=== PATIENT | female | born 1980 | race American Indian/Alaskan Native ===

== ENCOUNTER 2021-11-04 20:21 | Emergency (ER) | payer MEDICAID, OTHER, SELFPAY ==
[2021-11-04 20:27] VITALS: PULSE 102; RESP 24; TEMP 37.7; O2SAT 95
--- NOTE | 2021-11-04 20:31 | DI.RAD.S_ITS ---
PROCEDURE: XR CHEST 1V INDICATIONS: suspected sepsis TECHNIQUE: One view of the chest was acquired. COMPARISON: [facility], , CHEST 1 VIEW, 10/07/2014, 17:24. FINDINGS: Surgical changes and devices: None. Lungs and pleura: Lungs are clear. No pleural effusions or pneumothorax. Mediastinum: Mediastinal contours appear normal. Heart size is normal. Bones and chest wall: No suspicious bony lesions. Overlying soft tissues appear unremarkable. IMPRESSION: No evidence acute pulmonary process. Dictated by: Michael Schmitt M.D. on 11/04/2021 at 21:00 Approved by: Michael Schmitt M.D. on 11/04/2021 at 21:02
[2021-11-04 21:00] VITALS: BP 106/63; PULSE 100; RESP 30; O2SAT 100
[2021-11-04 21:10] VITALS: PULSE 98; RESP 30; O2SAT 99
[2021-11-04 21:15] VITALS: BP 95/50; PULSE 98; RESP 33; O2SAT 98
[2021-11-04 21:18] LABS: COVID19 -Nasal RAPID Negative (Negative)
--- NOTE | 2021-11-04 21:20 | PC.NURSE ---
Returned to room to ask about allergies to medicine, pt's partner told me we are leaving.... you guys are not doing anything. He removed pt from monitoring. I asked pt is she wanted to leave and she said 'yes'. I told them they were welcome to come back at any time. He states no we won't. total time in department 60 min. Signed AMA papers verbally understanding that risk of leaving was worsening of condition up to and including . Pt left department ambulatory w/o assistance.
== END 2021-11-04 21:24 | disposition left against medical advice (07) ==
PROVIDERS: Emergency Provider Emergency Medicine
DX: Z53.29 Procedure and treatment not carried out because of patient's decision for other reasons (principal); Z20.822 Contact with and (suspected) exposure to COVID-19
CPT/HCPCS: 71045; 87635; 99283; C9803

== ENCOUNTER 2023-12-04 18:43 | Emergency (ER) | payer MEDICAID, OTHER, SELFPAY ==
[2023-12-04 18:49] VITALS: BP 118/67; PULSE 79; RESP 16; TEMP 36.9; O2SAT 95
--- NOTE | 2023-12-04 18:53 | DI.RAD.S_ITS ---
PROCEDURE: XR ANKLE RT MIN 3V INDICATIONS: fell, pain in right ankle TECHNIQUE: 3 views of the ankle were acquired. COMPARISON: [facility], , ANKLE 3 VIEWS LEFT, 10/05/2008, 2:37. FINDINGS: Bones: Comminuted nondisplaced distal fibular fracture. Minimally displaced medial malleolar fracture is present. Soft tissues: Mild ankle edema. Achilles tendon appears normal. IMPRESSION: Comminuted nondisplaced distal fibular fracture. Minimally displaced medial malleolar fracture. Dictated by: Meenakshi Reno M.D. on 12/04/2023 at 19:17 Approved by: Meenakshi Reno M.D. on 12/04/2023 at 19:18
--- NOTE | 2023-12-04 20:31 | PC.NURSE ---
pt states that she hurt her ankle on Tue and has been staying in bed since but the pain has increased and pt is now unable to bear any weight on that leg, leg elevated and ice pack applied
--- NOTE | 2023-12-04 20:47 | DI.RAD.S_ITS ---
PROCEDURE: XR TIBIA FUBULA RT 2V INDICATIONS: distal fx, tender proximal too TECHNIQUE: 2 views of the tibia and fibula were acquired. COMPARISON: [facility], CR, XR ANKLE RT MIN 3V, 12/04/2023, 18:57. FINDINGS: Bones: Partially seen distal fibular fracture. There are degenerative changes at the knee. Ankle findings are separately dictated. No displaced fracture at the tibial fibular shafts. Soft tissues: No suspicious calcifications. Partially seen knee effusion. IMPRESSION: No displaced fracture of the tibial or fibular shafts. Ankle findings are separately dictated. There are degenerative changes at the knee. Partially seen knee effusion. If there is high concern for further derangement, consider dedicated radiograph and MRI evaluation. Dictated by: Donnell Alfredo M.D. on 12/04/2023 at 21:19 Approved by: Donnell Alfredo M.D. on 12/04/2023 at 21:21
[2023-12-04] MEDS: ACETAMINOPHEN 325 MG TABLET PO (20:53)
[2023-12-04] MEDS: IBUPROFEN 400 MG TABLET PO (20:53)
--- NOTE | 2023-12-04 22:03 | ED.LOWEXIN ---
HPI - Extremity Injury (Lower) General Chief Complaint: Extremity Injury, Lower Stated Complaint: rt ankle injury Time Seen by Provider: 12/04/23 20:14 Source: patient Mode of arrival: Wheelchair History of Present Illness HPI Narrative: 42-year-old woman with no significant medical issues fell 48 hours ago, slid down a slight incline and injured her right lower extremity. Her children reassured her that it was only sprained and so she did not seek care until this evening when it seem like it was more painful and more swollen. She complains of pain in both malleoli as well as her knee. She has been managing at home without walking on her right leg. She is taken some ibuprofen, she has been using ice and elevation. She has no other complaints. Related Data Allergies Allergy/AdvReac Type Severity Reaction Status Date / Time No Known Drug Allergies Allergy Verified 12/04/23 20:52 Review of Systems Review of Systems Narrative: Pertinent positive and negative findings as per HPI Patient History Social History Smoking Status: Former smoker Smoking Status: Former smoker alcohol intake frequency: 3 or more drinks per day Alcohol type: hard liquor Exam Initial Vital Signs Initial Vital Signs: Vital Signs Temperature 98.5 F 12/04/23 18:49 Pulse Rate 79 12/04/23 18:49 Respiratory Rate 16 12/04/23 18:49 Blood Pressure 118/67 12/04/23 18:49 Pulse Oximetry 95 12/04/23 18:49 Oxygen Delivery Method Room Air 12/04/23 18:49 General: Alert appropriate in no acute distress Respiratory: Able to speak in full sentences, no obvious respiratory distress Skin: No obvious rashes, warm and dry Neurologic: Grossly intact no obvious asymmetries or abnormalities Psych: appropriate insight and affect, cooperative Extremity: Right lower extremity is significantly more swollen than the left. She is tender over both malleoli and the dorsum of her foot. There is no obvious hematoma or abrasion. She is tender over the proximal fibular head and the knee has a minor effusion with no obvious tenderness injuries. Procedures Orthopedic Splinting/Casting Right ankle: Time of procedure: 22:05 Side: right Lower Extremity Injury Location: ankle Lower Extremity Immobilizer: posterior splint Other Orthopedic Equipment: crutches Post splinting neuro exam: intact Post splinting vascular exam: intact Placed by: Nursing Course Orders Ordered: ED Orders 12/04/23 18:53 XR ankle RT min 3V Stat 12/04/23 20:47 XR tibia fibula RT 2V Stat Discontinued Medications Acetaminophen (Acetaminophen 325 Mg Tablet) 325 mg PO NOW ONE Stop: 12/04/23 20:48 Last Admin: 12/04/23 20:53 Dose: 325 mg Documented By: SB Ibuprofen (Ibuprofen 400 Mg Tablet) 400 mg PO NOW ONE Stop: 12/04/23 20:48 Last Admin: 12/04/23 20:53 Dose: 400 mg Documented By: SB Vital Signs Vital signs: Vital Signs - 8 hr 12/04/23 18:49 Temperature 98.5 F Pulse Rate 79 Respiratory Rate 16 Blood Pressure 118/67 Pulse Oximetry 95 Oxygen Delivery Method Room Air MDM - Extremity Injury (Lower) MDM Narrative Medical decision making narrative: CC: Right ankle pain and swelling Complicating co-morbidities: Injury was 48 hours ago Data collected from: patient Differential considered: Sprain, fracture, other joints injured Exam documented above, pertinent findings include: She is swelling and tenderness over bilateral malleoli, minor tenderness over the right knee hip pelvis and spine are unremarkable Imaging studies independently reviewed: Ankle and dedicated tib-fib x-ray indicates she has a comminuted nondisplaced distal fibular fracture, a minimally displaced medial malleolar fracture. No proximal injuries to either bone Treatments: Ibuprofen and Tylenol along with ice. She is placed in a posterior splint Discussion: 42-year-old woman who slid down a slight incline almost 48 hours ago she has comminuted distal fibular fracture and a mediali malleolar fracture. Posterior splint is placed. She is given crutches. She found that ibuprofen and Tylenol given in the emergency room is adequate for pain control. We will need follow-up with orthopedic surgeon for definitive treatment of her ankle fracture Discharge Plan Departure Patient Disposition: Home Clinical Impression: Ankle fracture Qualifiers: Encounter type: initial encounter Fracture type: closed Laterality: right Qualified Code(s): S82.891A - Other fracture of right lower leg, initial encounter for closed fracture Knee sprain Qualifiers: Encounter type: initial encounter Involved ligament of knee: unspecified ligament Laterality: right Qualified Code(s): S83.91XA - Sprain of unspecified site of right knee, initial encounter Instructions: DI for Ankle Fracture, DI for Knee Sprain Activity Restrictions/Additional Instructions: Thank you for coming in today You did in fact break your ankle and sprain your knee. We have placed you in a splint in the emergency department but you do need to be seen by Orthopedic surgery for definitive treatment of your ankle fracture. Please call Sal nurse with Orthopedics at [phone] tomorrow and explain that you are in the emergency department and need to be seen for your ankle fracture. Using 400 mg of ibuprofen (2 [id number] pills) and 1 Tylenol every 6 hours can be very helpful in controlling pain. You may find ice outside of the splint is also helpful with pain control and reducing some of the swelling If you find that you are getting worse or develop any new symptoms, please feel free to return to the emergency department for further evaluation. Stand Alone Forms: Patient Portal/API
[2023-12-04 23:09] VITALS: BP 118/65; PULSE 76; RESP 18; O2SAT 100
== END 2023-12-04 23:10 | disposition home or self-care (01) ==
PROVIDERS: Emergency Provider Emergency Medicine
DX: S82.51XA Displaced fracture of medial malleolus of right tibia, initial encounter for closed fracture (principal); S82.831A Other fracture of upper and lower end of right fibula, initial encounter for closed fracture; W10.2XXA Fall (on)(from) incline, initial encounter
CPT/HCPCS: 29515; 73590; 73610; 99283

== ENCOUNTER → 2023-12-14 07:50 | Day surgery (SDC) | payer MEDICAID, OTHER, SELFPAY ==
[2023-12-12 12:32] VITALS: BMI 32.8
--- NOTE | 2023-12-14 | DI.RAD.S_ITS ---
PROCEDURE: XR ANKLE RT MIN 3V INDICATIONS: Post cast TECHNIQUE: 3 views of the ankle were acquired. COMPARISON: [facility], CR, XR ANKLE RT MIN 3V, 12/04/2023, 18:57. FINDINGS: A cast is present, obscuring fine bony detail. Bones: No change in alignment of distal tibial and fibular fractures. Soft tissues: No tibiotalar joint effusion. Achilles tendon appears normal. IMPRESSION: No change in alignment of distal tibial and fibular fractures. Dictated by: Sharmin Forman M.D. on 12/14/2023 at 9:38 Approved by: Sharmin Forman M.D. on 12/14/2023 at 9:39
--- NOTE | 2023-12-14 08:17 | PM.PREOP ---
Pre-operative Note Interval Note History & Physical reviewed/Exam performed by Physician: Yes Changes to H&P: No
[2023-12-14 08:20] VITALS: BMI 32.8
[2023-12-14 08:27] LABS: COVID19 -Nasal RAPID Negative (Negative)
--- NOTE | 2023-12-14 08:35 | SUR.PREOP ---
Pt with temp 102.3oral and 100.5 temporal Or sat 93%on admit with Pt reporting cough and sore throat since yesterday. Lungs on auscultation scattered coarse with expiratory wheeze. Covid sent, negative.
--- NOTE | 2023-12-14 08:50 | SUR.PREOP ---
Addendum entered by Lucretia Davenport R.N. 12/14/23 08:56: Covid swab done - negative. Surgical case cancelled. Ankle casted by Dr Barrera in preop. Xray to be done. Original Note: Pt with sore throat and cough since yesterday. Lungs course with expiratory wheezing. O2 sats 93-94% on room air. Resp rate 26. Temp 102.[address] Palmer notified. Case cancelled.
[2023-12-14 08:53] VITALS: TEMP 39.1
[2023-12-14] MEDS: OXYCODONE IR 5 MG TABLET PO (08:53)
[2023-12-14] MEDS: ACETAMINOPHEN 325 MG TABLET 975 MG PO (08:53)
--- NOTE | 2023-12-14 08:54 | SUR.PREOP ---
see oxycodone order for casting at bedside
--- NOTE | 2023-12-14 09:19 | PM.OP.1 ---
Operative Date/Time/Diagnoses Date of procedure: 12/14/23 Pre-op diagnosis: Bimalleolar right ankle fracture Post-op diagnosis: same Procedure & Clinicians Procedure: Closed reduction and casting of bimalleolar right ankle fracture Same procedure as scheduled: No Surgeon: Jose Carlos Barrera Click Yes if Unassisted: Yes Anesthesia Type: None Operative Notes Procedure in detail: This 43-year-old female patient sustained a ground level fall approximately 10 days ago and had a bimalleolar right ankle fracture. The lateral side was relatively nondisplaced and the medial side was only minimally displaced. I discussed operative versus nonoperative management with her in clinic and explained that although her preoperative mortise radiograph was nearly normal, her ankle fracture having bimalleolar components by definition made it an unstable ankle fracture. I therefore recommended fixation in the form of a lateral plate and medial screws. She was brought to the preoperative holding area today in preparation for that surgery. Unfortunately she became febrile, complained of flu-like symptoms, and vomited. Anesthesia recommended discontinuation of the case for the day based on these preoperative symptoms. I therefore discussed with the patient the possibility of attempting nonoperative management. As it is a bimalleolar fracture my plan had been to fix it today, however surgery will now be delayed because of her symptoms today and I felt that an attempt at nonoperative management in the meantime would be reasonable. If she re displaces on the medial side in particular, I would then again attempts to proceed with operative fixation. I therefore proceeded with closed reduction and casting today. In the preoperative holding area the patient was provided with opiate analgesics. A short-leg cast was applied by myself and I held the reduction and a mold to hold the ankle fracture in place. The cast was allowed to dry with the foot in appropriate dorsiflexion. I obtained post cast radiographs demonstrating an appropriate mortise radiograph with reduction of the medial malleolus. She tolerated this without complication. I will plan to keep her nonweightbearing and follow her closely radiographically. I will have her come back to clinic next week for repeat ankle radiographs.
--- NOTE | 2023-12-14 10:24 | SUR.PREOP ---
Pt has been sleeping since casting. Awoke easily to voice. O2 sat 93% on room air. HR 88. Temp 100.0 temporal. Still trying to arrange ride with current snow.
--- NOTE | 2023-12-14 15:36 | SUR.PREOP ---
Pt unable to obtain a ride home until 1519.
== END | disposition home or self-care (01) ==
PROVIDERS: Referring Provider Orthopaedic Surgery Adult Reconstructive Orthopaedic Surgery; Visit Provider Orthopaedic Surgery Adult Reconstructive Orthopaedic Surgery
DX: S82.844A Nondisplaced bimalleolar fracture of right lower leg, initial encounter for closed fracture (principal); R11.10 Vomiting, unspecified; W18.30XA Fall on same level, unspecified, initial encounter
CPT/HCPCS: 27810; 73610; 87635